=== PATIENT | female | born 1950 | race Caucasian/White ===

== ENCOUNTER 2018-09-07 10:28 | Emergency (ER) | payer OTHER ==
[~2018-09-07 10:28] MED LIST: CIPROFLOXACN500 MG PO; CLONIDINE PO; ENALAPRIL2.5 MG PO; LORTAB 7.57.5 MG PO; ZESTRIL10 M1 PO
[2018-09-07 10:59] LABS: HEMATOCRIT 42.2 % (37.0-47.0); HEMOGLOBIN 13.6 g/dl (12.0-16.0); IMMATURE GRANULOCYTES 0.7 % (0.0-5.0); MEAN CELL VOLUME 87.6 fL CALC (80.0-100.0); MEAN CORPUSCULAR HGB 28.2 pG CALC (26.0-32.0); MEAN CORPUSCULAR HGB CONC 32.2 g/L CALC (32.0-36.0); NEUT# 11.81 thou/uL (2.00-7.15); RED BLOOD COUNT 4.82 mill/uL (4.20-5.60); RED CELL DISTRI WIDTH 13.8 % (11.5-15.5)
[2018-09-07 11:06] LABS: ALBUMIN 4.5 g/dL (3.2-5.0); ALKALINE PHOSPHATASE 173 u/l (38-126); ANION GAP 17 (6-22 (CALC)); BILIRUBIN, TOTAL 0.8 mg/dL (0.0-1.4); BUN 24 mg/dL (8-23); BUN/CREATININE RATIO 20 (12-20 (CALC)); CARBON DIOXIDE 27 mmol/l (22-30); CHLORIDE 106 mmol/l (95-108); CREATININE 1.2 mg/dL (0.5-1.0); GFR 45 ML/MIN (>=60 (CALC)); GFR FOR AFR.AMER. 54 ML/MIN (>=60 (CALC)); POTASSIUM 4.1 mmol/l (3.5-5.1); SGOT/AST 21 u/l (9-36); SODIUM 145 mmol/l (137-146); TOTAL PROTEIN 7.9 g/dL (6.3-8.2)
[2018-09-07 11:12] LABS: ACT PARTIAL THROMBO TIME 26.3 SECONDS (20.0-32.5); PROTHROMBIN TIME 10.7 SECONDS (9.0-12.5)
[2018-09-07 11:18] LABS: MYOGLOBIN 125 ng/mL (0 - 62)
[2018-09-07 12:30] VITALS: BP 179/89
== END 2018-09-07 12:30 | disposition short-term general hospital (02) ==
LOC: ED 10:28 → EDBD 11:07 → ED 12:30
PROVIDERS: Family Medicine
DX: I63.9 Cerebral infarction, unspecified (principal); R29.818 Other symptoms and signs involving the nervous system; R29.718 NIHSS score 18; G40.909 Epilepsy, unspecified, not intractable, without status epilepticus; R94.31 Abnormal electrocardiogram [ECG] [EKG]; I10 Essential (primary) hypertension; Z86.73 Personal history of transient ischemic attack (TIA), and cerebral infarction without residual deficits
CPT/HCPCS: J2060; Q9967

== ENCOUNTER 2018-10-31 13:53 | Emergency (ER) | payer OTHER ==
[~2018-10-31] VITALS: Ht 162.6 cm; Wt 62.0 kg
[2018-10-31 14:54] LABS: HEMATOCRIT 40.3 % (37.0-47.0); HEMOGLOBIN 12.7 g/dl (12.0-16.0); IMMATURE GRANULOCYTES 0.4 % (0.0-5.0); MEAN CELL VOLUME 89.6 fL CALC (80.0-100.0); MEAN CORPUSCULAR HGB 28.2 pG CALC (26.0-32.0); MEAN CORPUSCULAR HGB CONC 31.5 g/L CALC (32.0-36.0); NEUT# 12.5 thou/uL (2.00-7.15); RED BLOOD COUNT 4.5 mill/uL (4.20-5.60); RED CELL DISTRI WIDTH 14.2 % (11.5-15.5)
[2018-10-31 15:06] LABS: POTASSIUM 4.2 mmol/l (3.5-5.1)
[2018-10-31 15:10] LABS: INTERNATIONAL NORMALIZED RATIO 1.1 RATIO (0.7-1.3); PROTHROMBIN TIME 11.2 SECONDS (9.0-12.5)
[2018-10-31 15:11] LABS: CREATININE 1.3 mg/dL (0.5-1.0)
[2018-10-31] MEDS ORDERED: VITAMIN D31000 UNI1 PO (15:28)
[2018-10-31] MEDS ORDERED: CALCIUM PO (15:28)
[2018-10-31] MEDS ORDERED: ECOTRIN LOW STR81 MG (15:28)
[2018-10-31] MEDS ORDERED: AMLODIPINE5 MG PO (15:29)
[2018-10-31] MEDS ORDERED: ALENDRONATE70 MG PO (15:29)
[2018-10-31] MEDS ORDERED: LOPID600 MG PO (15:29)
[2018-10-31] MEDS ORDERED: ATORVASTATIN CA40 MG PO (15:30)
[2018-10-31 17:20] VITALS: BP 102/44
== END 2018-10-31 17:20 | disposition short-term general hospital (02) ==
LOC: ED 13:53
PROVIDERS: Family Medicine
DX: I63.9 Cerebral infarction, unspecified (principal); G81.94 Hemiplegia, unspecified affecting left nondominant side; R27.0 Ataxia, unspecified; I21.4 Non-ST elevation (NSTEMI) myocardial infarction; I10 Essential (primary) hypertension; M19.90 Unspecified osteoarthritis, unspecified site; G40.909 Epilepsy, unspecified, not intractable, without status epilepticus; Z86.73 Personal history of transient ischemic attack (TIA), and cerebral infarction without residual deficits; S80.02XA Contusion of left knee, initial encounter; S80.01XA Contusion of right knee, initial encounter; W01.0XXA Fall on same level from slipping, tripping and stumbling without subsequent striking against object, initial encounter; Y92.009 Unspecified place in unspecified non-institutional (private) residence as the place of occurrence of the external cause
CPT/HCPCS: J1644; Q9967